=== PATIENT | female | born 1975 | race Caucasian/White ===

== ENCOUNTER 2018-03-17 06:34 | Emergency (ER) | payer MEDICARE, BC ==
[~2018-03-17] VITALS: Ht 162.6 cm; Wt 61.4 kg
[2018-03-17 07:10] LABS: HEMATOCRIT 38.7 % (37.0-47.0); HEMOGLOBIN 12.3 g/dl (12.0-16.0); IMMATURE GRANULOCYTES 0.1 % (0.0-5.0); MEAN CELL VOLUME 87.2 fL CALC (80.0-100.0); MEAN CORPUSCULAR HGB 27.7 pG CALC (26.0-32.0); MEAN CORPUSCULAR HGB CONC 31.8 g/L CALC (32.0-36.0); NEUT# 4.51 thou/uL (2.00-7.15); RED BLOOD COUNT 4.44 mill/uL (4.20-5.60); RED CELL DISTRI WIDTH 16.7 % (11.5-15.5)
[2018-03-17 07:17] LABS: ALBUMIN 3.8 g/dL (3.2-5.0); ALKALINE PHOSPHATASE 70 u/l (38-126); ANION GAP 11 (6-22 (CALC)); BILIRUBIN, TOTAL 0.3 mg/dL (0.0-1.4); BUN 10 mg/dL (7-17); BUN/CREATININE RATIO 15 (12-20 (CALC)); CARBON DIOXIDE 30 mmol/l (22-30); CHLORIDE 101 mmol/l (95-108); CREATININE 0.7 mg/dL (0.5-1.0); GFR > 60 ML/MIN (>=60 (CALC)); GFR FOR AFR.AMER. > 60 ML/MIN (>=60 (CALC)); SGOT/AST 19 u/l (14-36); SODIUM 138 mmol/l (137-146); TOTAL PROTEIN 6.7 g/dL (6.3-8.2)
[2018-03-17] MEDS ORDERED: DUONEB IN (07:51)
[2018-03-17 08:15] VITALS: BP 151/87
== END 2018-03-17 08:30 | disposition home or self-care (01) ==
LOC: ED 06:34
PROVIDERS: Family Medicine
DX: J44.1 Chronic obstructive pulmonary disease with (acute) exacerbation (principal); R06.02 Shortness of breath; R05 Cough; R06.2 Wheezing; F17.210 Nicotine dependence, cigarettes, uncomplicated

== ENCOUNTER 2018-04-07 10:50 | Emergency (ER) | payer MEDICARE, BC ==
[~2018-04-07] VITALS: Ht 162.6 cm; Wt 52.0 kg
[~2018-04-07 10:50] MED LIST: DUONEB IN
[2018-04-07 12:06] LABS: HEMATOCRIT 43.7 % (37.0-47.0); HEMOGLOBIN 14.1 g/dl (12.0-16.0); IMMATURE GRANULOCYTES 0.7 % (0.0-5.0); MEAN CORPUSCULAR HGB 27.4 pG CALC (26.0-32.0); MEAN CORPUSCULAR HGB CONC 32.3 g/L CALC (32.0-36.0); NEUT# 8.14 thou/uL (2.00-7.15); RED BLOOD COUNT 5.14 mill/uL (4.20-5.60); RED CELL DISTRI WIDTH 15.9 % (11.5-15.5)
[2018-04-07 12:41] LABS: ANION GAP 14 (6-22 (CALC)); BUN 22 mg/dL (7-17); BUN/CREATININE RATIO 27 (12-20 (CALC)); CARBON DIOXIDE 30 mmol/l (22-30); CHLORIDE 98 mmol/l (95-108); CREATININE 0.8 mg/dL (0.5-1.0); GFR > 60 ML/MIN (>=60 (CALC)); GFR FOR AFR.AMER. > 60 ML/MIN (>=60 (CALC)); POTASSIUM 4.7 mmol/l (3.5-5.1); SODIUM 137 mmol/l (137-146)
[2018-04-07] MEDS ORDERED: PREDNISONE20 MG PO (13:01)
[2018-04-07] MEDS ORDERED: MEDDOSEPAK PO (13:01)
[2018-04-07] MEDS ORDERED: DOXYCYC MONO100 M2 PO (13:01)
[2018-04-07] MEDS ORDERED: CEFTIN250 MG PO (13:01)
[2018-04-07 13:23] VITALS: BP 124/84
[2018-04-07] MEDS ORDERED: IPRATROPIUM BR0.02 % PO (13:27)
== END 2018-04-07 13:43 | disposition home or self-care (01) ==
LOC: ED 10:50
PROVIDERS: Family Medicine
DX: J44.1 Chronic obstructive pulmonary disease with (acute) exacerbation (principal); F17.210 Nicotine dependence, cigarettes, uncomplicated; R06.02 Shortness of breath; R05 Cough